=== PATIENT | male | born 1965 | race Caucasian/White ===

== ENCOUNTER 2020-11-29 13:06 | Outpatient (CLI) | payer MEDICAID | END 2020-11-29 23:59 | disposition home or self-care (01) | LOC: CFH 13:06 | PROVIDERS: ATTEND Family Medicine | DX: J32.8 Other chronic sinusitis (principal); J32.0 Chronic maxillary sinusitis; J32.2 Chronic ethmoidal sinusitis; J32.1 Chronic frontal sinusitis; J34.89 Other specified disorders of nose and nasal sinuses; K02.9 Dental caries, unspecified ==